=== PATIENT | male | born 1965 | race Caucasian/White ===

== ENCOUNTER → 2018-08-15 | Outpatient (CLI) | payer SELFPAY ==
[2018-08-15 10:41] LABS: HEMATOCRIT 48.4 % (42.0-52.0); HEMOGLOBIN 16.2 g/dl (13.5-18.0); MEAN CELL VOLUME 89 fl (80.0-100.0); MEAN CORPUSCULAR HEMOGLOBIN 30 pg (27.0-31.0); MEAN CORPUSCULAR HGB CONC 34 g/dl (33.0-37.0); MEAN PLATELET VOLUME 10.8 fl (7.4-10.4); PLATELET COUNT 240 K/mm3 (130-400); RED BLOOD COUNT 5.44 M/mm3 (4.20-5.60); REDCELL DISTRIBUTION WIDTH-CV 12.8 % (11.5-14.5)
[2018-08-15 10:53] LABS: ALBUMIN 4.4 gm/dL (3.5-5.0); BILIRUBIN,TOTAL 1.1 mg/dL (0.0-1.0); CALCIUM 9.6 mg/dL (8.4-10.2); CHOLESTEROL RISK RATIO 4.6; CREATININE, serum 0.95 mg/dL (0.66-1.25); POTASSIUM 4.6 mmol/L (3.4-5.0); TOTAL PROTEIN 7.7 gm/dL (6.4-8.2)
[2018-08-15 11:01] LABS: MUCOUS Present /lpf; PH 5 (5-8); SQUAMOUS EPITHELIAL None Seen /hpf; URINE APPEARANCE Clear; URINE BACTERIA Rare /hpf; URINE BILIRUBIN Negative (NEGATIVE); URINE BLOOD Negative (NEGATIVE); URINE COLOR Yellow; URINE GLUCOSE Negative (NEGATIVE); URINE KETONE Negative (NEGATIVE); URINE LEUKOCYTE ESTERASE Negative (NEGATIVE); URINE NITRATE Negative (NEGATIVE); URINE PROTEIN(semi-quant) 1+ (NEGATIVE); URINE UROBILINOGEN Negative (NEGATIVE)
[2018-08-15 11:17] LABS: COLLECTION METHOD CLEAN CATCH
== END ==
LOC: COL.VAS 09:25
DX: I10 Essential (primary) hypertension (principal)

== ENCOUNTER 2019-10-28 14:30 | Emergency (ER) | payer SELFPAY ==
[~2019-10-28] VITALS: Ht 185.4 cm; Wt 115.9 kg
[2019-10-28] MEDS ORDERED: ASPIRIN 81M81 MG/TA2 PO (14:42)
[2019-10-28 15:13] LABS: BASO # 0.1 (0.0-0.2); BASO % 0.6 % (0.0-2.0); EOS # 0.3 (0.0-0.7); EOS % 3.2 % (0-4.0); GRAN # 4.1 (1.4-6.5); HEMATOCRIT 44.3 % (42.0-52.0); HEMOGLOBIN 14.6 g/dl (13.5-18.0); LYMPH # 3.5 (1.2-3.4); LYMPH % 41.6 % (20.0-51.0); MEAN CELL VOLUME 88 fl (80.0-100.0); MEAN CORPUSCULAR HEMOGLOBIN 29 pg (27.0-31.0); MEAN CORPUSCULAR HGB CONC 33 g/dl (33.0-37.0); MEAN PLATELET VOLUME 11.9 fl (7.4-10.4); MONO # 0.5 (0.1-0.6); MONO % 6.4 % (1.7-9.3); PLATELET COUNT 227 K/mm3 (130-400); RED BLOOD COUNT 5.04 M/mm3 (4.20-5.60); REDCELL DISTRIBUTION WIDTH-CV 12.9 % (11.5-14.5)
[2019-10-28 15:15] LABS: INR 1.1 (0.8-3.0); PROTHROMBIN TIME 12.5 SECONDS (9.7-12.8)
[2019-10-28 15:18] LABS: PARTIAL THROMBOPLASTIN TIME 30.5 SECONDS (26.0-37.0)
[2019-10-28 15:27] VITALS: TEMP 98
[2019-10-28 16:25] VITALS: BP 131/93; PULSE 87
[2019-10-28 16:29] LABS: TROPONIN-I 0.019 ng/mL (0.000-0.035)
[2019-10-28 16:43] LABS: C-REACTIVE PROTEIN 0.6 mg/dL (0.0-0.9)
[2019-10-28 16:48] LABS: ALBUMIN 4.5 gm/dL (3.5-5.0); BILIRUBIN,TOTAL 0.8 mg/dL (0.0-1.0); CALCIUM 9.4 mg/dL (8.4-10.2); CREATININE, serum 0.66 (0.66-1.25); POTASSIUM 3.9 mmol/L (3.4-5.0); TOTAL PROTEIN 8.1 gm/dL (6.4-8.2)
== END 2019-10-28 16:35 | disposition short-term general hospital (02) ==
LOC: COL.ER 14:30
PROVIDERS: Emergency Medicine
DX: I62.9 Nontraumatic intracranial hemorrhage, unspecified (principal); I10 Essential (primary) hypertension; Z79.82 Long term (current) use of aspirin
CPT/HCPCS: J7050

== ENCOUNTER 2019-12-20 04:11 | Emergency (ER) | payer SELFPAY ==
[~2019-12-20] VITALS: Ht 185.4 cm; Wt 111.4 kg
[~2019-12-20 04:11] MED LIST: ASPIRIN 81M81 MG/TA2 PO
[2019-12-20 04:20] VITALS: TEMP 97.9
[2019-12-20] MEDS ORDERED: NORVASC 10MG10 MG PO ×2 (04:23→05:51)
[2019-12-20] MEDS ORDERED: LIPITOR 40MG TA40 MG PO ×2 (04:24→05:51)
[2019-12-20] MEDS ORDERED: GLUCOPHAGE500 MG/TAB PO (04:24)
[2019-12-20] MEDS ORDERED: PRINIVIL40 MG PO ×2 (04:24→05:51)
[2019-12-20 07:18] VITALS: BP 132/98; PULSE 77
== END 2019-12-20 07:18 | disposition home or self-care (01) ==
LOC: COL.ER 04:11
DX: I10 Essential (primary) hypertension (principal); E78.5 Hyperlipidemia, unspecified; Z86.73 Personal history of transient ischemic attack (TIA), and cerebral infarction without residual deficits; Z90.89 Acquired absence of other organs; Z79.82 Long term (current) use of aspirin; Z79.84 Long term (current) use of oral hypoglycemic drugs